=== PATIENT | female | born 1975 | race Caucasian/White ===

== ENCOUNTER 2019-07-15 05:54 | Day surgery (SDC) | payer OTHER, SELFPAY ==
[2019-07-15 06:36] VITALS: BP 94/53; PULSE 79; RESP 16; TEMP 36.8; O2SAT 99; BMI 24.1
[2019-07-15 06:52] LABS: Hematocrit 38.2 % (37-47); Mean Corpuscular Hgb 32.1 pg (27.0-32.0); Mean Corpuscular Volume 94.3 fL (81-99); Mean Platelet Vol. 9.9 fl (6.2-12.0); Platelet Count 378 K/mm3 (150-450); RBC Distribution Width CV 13.5 % (11.6-14.6); RBC Distribution Width SD 46.6 fl (35.1-43.9); Red Blood Count 4.05 M/mm3 (4.2-5.4); White Blood Count 8.1 K/mm3 (4.4-11.0)
[2019-07-15] MEDS: Lactated Ringers 1,000 ML 100 ML IV (07:01)
[2019-07-15 07:06] LABS: International Normalized Ratio 1.1; Partial Thromboplast Time 35.4 Seconds (24.1-36.2); Prothrombin Time (Protime)PT. 14.1 SECONDS (11.7-14.9)
--- NOTE | 2019-07-15 07:30 | POC_PTH ---
PATIENT: NITHIN BORDEN LOC: [facility] [place][id number] AGE/SX: 43/F ROOM: RE07/15/[address]: Dr. Jose Luis Zheng MD : 1975 BED: DIS: 07/15/2019 SPEC #: [id number] RECD: 07/15/19 09:39 STATUS: BLAYNE JUVE #: [id number] KRISHNA: 07/15/19 07:[address]: Jose Luis Zheng DEPT: SURGICAL PATHOLOGY RECD BY: Vivian Ricks ENTERED: 07/15/19 10:32 SP TYPE: PROD CONC OTHR DR: Dr. Mani Rosa, Tissues: Product of conception, NOS Procedures: Surgery Specimen Level IV HEADER OPERATION: Dilation and curettage, suction PRE-OP DIAGNOSIS: Incomplete spontaneous TISSUE SUBMITTED: Products of conception MICROSCOPIC DIAGNOSIS Products of conception: Immature chorionic villi, decidua and gestational endometrium (products of conception). SJ:beata 07/18/19 MICROSCOPIC DESCRIPTION Slides are reviewed. GROSS DESCRIPTION Received in fixative is one container labeled with the patient's name and designated products of conception. The specimen consists of multiple fragments of pink hemorrhagic soft tissue that in aggregate measure 7 x 6 x 1 cm. tissue is not identified. Vp Foundation tissue is submitted in two cassettes. / SJ:beata 07/15/19 TC:5 CPT: 95931
--- NOTE | 2019-07-15 07:52 | HP.PCM_ITS ---
History and Physical Date of Admission: 07/15/19 Date: 07/13/2019 Name: ASHLEIGH ARRIAGA Age: 43 Date of : 1975 HISTORY OF PRESENT ILLNESS: On 07/13/2019, Ashleigh Arriaga, a 43 year old female 1 1 4 0 1, presented for: -- Inevitable Miscarriage -- Denies any vaginal bleeding or cramping after u/s last week suggested possible demise. U/S today shows 6w2d IUP without FHTs. ALLERGIES: NKA, methergine, Leg pain, Methergine and Joint pain MEDICATIONS HISTORY: Current medications prescribed by our practice are: 1. Prometrium 200 mg capsule, 1 PO q HS REVIEW OF SYSTEMS: GENERAL - Denies fever, or chills SKIN - Denies skin changes EYES - Denies visual changes EARS - Denies difficulty hearing NOSE - Denies nasal congestion or bleeding MOUTH - Denies sore throat or difficulty swallowing NECK - Denies pain or swelling RESPIRATORY - Denies shortness of breath or wheezing CARDIOVASCULAR - Denies palpitations or chest pain GASTROINTESTINAL - Denies nausea, vomiting, diarrhea, constipation GENITOURINARY - Denies dysuria, frequency of urination, incontinence of urine MUSCULOSKELETAL - Denies joint or muscle pain NEUROLOGICAL - Denies localized numbness or weakness PSYCHIATRIC - Denies depression or anxiety ENDOCRINE - Denies heat or cold intolerance, weight loss or gain HEMATO-IMMUNOLOGIC - Denies excesive bleeding with cuts PAST HISTORY: Breast/Ovarian/Colon Cancers - Denies Infections - chicken pox Illnesses - no serious past illnesses Accidents - no injuries of consequence History of Abnormal PAPS - first noted more than 10 years ago-- YES Hospitalizations - Childbirth and see surgery SURGICAL HISTORY: 1. 02/10/2014 [facility] Trent M.D. 2. 07/22/1995 D and C 3. 06/11/1997 D and C 4. 12/07/2013 amalia Trent M.D. 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 Incomplete Spontaneous Without Complication PLAN BY DIAGNOSIS: 1. Spontaneous , Incomplete, Without Mention Of Complication Inevitable miscarriage at approximately 9 weeks gestation with 6w2d gestation without FHTs. Discussed options and MC at length. Desires to proceed with Suction D and E. Discussed RBAs and all questions answered.
--- NOTE | 2019-07-15 08:24 | PCM.OPRPT ---
Report of Operation Date of Procedure: 07/15/19 Pre-Operative Diagnosis: Inevitable Miscarriage Post-Operative Diagnosis: Inevitable Miscarriage Surgery/Procedure Performed:: Suction Dilation and Evacuation Description of Surgical Findings:: 10 cm endometrial cavity with products of conception Anesthesiologist: Talon Kang Specimen's removed: Products of conception Estimated Blood Loss (mL): Minimal Fluids Replaced: Crystalloid Description of Procedure: Surgeon: Jose Luis Zheng MD, FACOG Indication: 43 year old patient with incomplete AB at 9 weeks gestation with a 6 week IUP without FHTs. Pt has been counseled regarding the risks, benefits, and alternatives of this procedure and all questions were answered. Procedure: Patient was taken to the operating room where she was given IV sedation. The patient was prepped and draped in the usual sterile fashion. The anterior cervix was grasped with a tenaculum and cervix was dilated. A 10 mm suction curette was inserted into the cervix and all contents removed. Uterus was gently curetted and remaining tissue was removed by reinserting the suction curette. The patient tolerated the procedure well and was taken to the recovery room in satisfactory condition. Sponge, instruments and needle counts were all correct. There were no apparent complications of the surgery. Grafts/Implants Used: None - Complications None - Admit VTE Documentation VTE Present on Admission: Yes VTE Mechan Device Prophylaxis: SCD's VTE Pharm Prophylaxis ordered?: No
--- NOTE | 2019-07-15 08:29 | DCINST_ITS ---
Discharge Diet: No Restrictions Discharge Activity: Return to Normal Activity, May Shower, May Take a Tub Bath - in 2 weeks. May resume sexual activity in: 3 weeks Call your doctor if you observe: Fever of 101 or Higher, Inability to urinate, Inability to have a bowel movement, Using more than one pad per hour Additional Instructions: Use Ibuprophen and/or Tylenol at home for crampiness. Allergies/Adverse Reactions: Allergies methylergonovine maleate [From Methergine] Allergy (Verified 07/14/19 10:15) Other Medications to take at Discharge Cephalexin [Keflex] 500 mg PO BID 07/14/19 Primary Care Physician: Mani Rosa DO [Primary Care Provider] - Test Results: Test results from this visit will be discussed in further detail at your follow- up appointment, if applicable. Please Follow Up With: Jose Luis Zheng MD When: 2-3 weeks
[2019-07-15 08:30] VITALS: BP 114/69; BP 94/53; PULSE 92; RESP 16; TEMP 36.7; O2SAT 95
[2019-07-15 08:35] VITALS: BP 109/70; BP 94/53; PULSE 86; RESP 16; O2SAT 97
[2019-07-15 08:40] VITALS: BP 94/53; BP 99/66; PULSE 81; RESP 16; O2SAT 98
[2019-07-15 08:45] VITALS: BP 108/68; BP 94/53; PULSE 77; RESP 16; TEMP 36.7; O2SAT 98
[2019-07-15] MEDS: HYDROcodone Bitartrate/Apap 5/325 Tablet PO (09:17)
[2019-07-15 09:40] VITALS: BP 94/53
== END 2019-07-15 09:52 | disposition home or self-care (01) ==
LOC: SDC 05:57 → AC 05:58
PROVIDERS: Family Provider Student in an Organized Health Care Education/Training Program; PCP Student in an Organized Health Care Education/Training Program; Referring Provider Obstetrics & Gynecology; Visit Provider Obstetrics & Gynecology
PROC: (CPT 59812; principal; 2019-07-15 07:15)
DX: O03.4 Incomplete spontaneous abortion without complication (principal); Z3A.09 9 weeks gestation of pregnancy; Z82.49 Family history of ischemic heart disease and other diseases of the circulatory system; F17.210 Nicotine dependence, cigarettes, uncomplicated
CPT/HCPCS: 01965; 59812; 85027; 85610; 85730; 86850; 86900; 86901; 88305; J7120; J2405

== ENCOUNTER 2019-10-07 12:46 | Emergency (ER) | payer OTHER, SELFPAY ==
[2019-10-07 12:47] VITALS: BP 130/80; PULSE 115; RESP 16; TEMP 36.5; O2SAT 100; BMI 24.3
--- NOTE | 2019-10-07 13:00 | VDLE_ITS ---
Reason For Study: pain RIGHT GSV is normal. CFV is compressible, spontaneous, phasic, competent and demonstrates normal augmentation. FV is compressible, spontaneous, phasic, competent and demonstrates normal augmentation. POP V is compressible, spontaneous, phasic, competent and demonstrates normal augmentation. T/P Trunk is compressible. PTV is compressible. RT PerV is compressible. Procedure Exam performed portable in ED. The exam was abbreviated due to the COVID 19 protocol. The exam was diagnostic. A preliminary report was called and/or faxed to Dr. Cedeno. Interpretation Summary Deep veins of the right lower extremity are patent and compressible segmentally. There is no evidence of right lower extremity deep vein thrombosis. Valvular competence appears intact within the proximal deep venous system on the right . The right great saphenous vein appears patent and compressible segmentally. Ordering Physician: Alanna Cedeno Performed By: Lauro Robertson RVT
--- NOTE | 2019-10-07 13:01 | ED.VIS.GEN ---
History of Present Illness Chief Complaint: Lower Extremity Injury Informant: Patient Onset: Days Context: Gradual Onset Timing: Continuous Narrative: Patient is a 44-year-old female with no significant past medical history presenting with pain of her right lower extremity. Patient states for the past 2 to 3 days she has had a warmth sensation in her calf. She describes as always if she were to pee on herself. Last night she developed a painful knot over her medial calf. She states she was up all night because she was worried it be a blood clot. She states is painful but she did not take anything for pain. She called her primary care doctor, Dr. Rosa and the office instructed her to come to the emergency room to make sure it was not a blood clot. Patient denies any history of DVTs or PEs. She denies any chest pain, shortness of breath or difficulty breathing. She denies any hemoptysis. She is not on any estrogen supplements. She has not had any travel or immobilization recently. She states she does feel very anxious about the situation. She denies any other complaints at this time. Past Medical History - Allergies and Home Meds Allergies/Adverse Reactions: Allergies methylergonovine maleate [From Methergine] Allergy (Verified 10/07/19 12:48) Other Primary Care Physician: Mani Rosa DO [Primary Care Provider] - Past Medical History: None Surgical History: noncontributory Smoking Status: Current every day smoker Review of Systems General: Denies: Chills, Fever, Sweats Eyes: Denies: Visual changes - bilaterally, Diplopia ENT: Denies: Rhinorrhea, Sore throat Cardiovascular: Denies: Chest pain, Palpitations Respiratory: Denies: Dyspnea, Cough, Dyspnea on exertion Gastrointestinal: Denies: Abdominal pain, Nausea, Vomiting, Diarrhea, Melena, Hematochezia Genitourinary: Denies: Dysuria, Hematuria, Frequency Musculoskeletal: Reports: Extremity Pain - Right calf. Denies: Back pain, Swelling Skin: Denies: Rash, Wounds Neurological: Denies: Headache, Weakness, Numbness Physical Exam Vital Signs/Narrative: Vital Signs Temp Pulse Resp BP Pulse Ox 10/07/19 12:47 97.7 F L 115 H 16 130/80 H 100 Inital Vital Signs reviewed: Yes General: Well nourished, Well developed, No Acute Distress Head: Normocephalic, Atraumatic Eyes: Perrl, EOMI ENT: Moist mucous membranes, No rhinorrhea Neck: Supple, Nontender Cardiovascular: Regular rhythm, No murmurs, Tachycardia, - - 2+ bilateral DP pulses Respiratory: No distress, CTA bilaterally, Chest nontender Abdomen: Soft, Nontender, Nondistended, Normal bowel sounds Back: Nontender, Normal Inspection Extremities: No edema, Calf Tenderness - Right medial calf, tender cord palpated. No associated edema, warmth or erythema Skin: Normal color, No rash Neurological: Alert, Oriented x3, Cranial nerves II-XII grossly intact, Normal Strength, Normal Sensation Psychological: Normal affect, Normal Mood Diagnostic/Tx/Re-eval Venous duplex?negative for DVT - Medical Decision Making Patient is evaluated for pain of her right calf. Patient is not have any risk factors for DVT. She is very concerned that she might have 1 however. She is not have any findings consistent with infectious phlebitis, cellulitis or other acute emergencies on physical exam. She is neurovascularly intact. She has equal distal pulses. Her vital signs are normal except for tachycardia. I attribute this to patient's anxiety. Patient does not have any respiratory symptoms. Duplex ultrasound does not show any DVT. Patient is counseled that this might be some inflammation of her veins. She is counseled on ice and NSAID therapy. Patient is counseled on signs and symptoms require return the emergency room. She verbalizes agreement and understanding of this plan. Patient is discharged in stable condition. Of note patient does leave before she can receive her discharge for work but was exited by me. ED Disposition - Plan for ED Patient: Disposition: Home or Assisted Living Diagnosis: Right calf pain Referrals: Mani Rosa DO [Primary Care Provider] -
--- NOTE | 2019-10-07 15:32 | ED.RN ---
PT LEFT WITHOUT DISCHARGE INSTRUCTIONS. DR. VELÁSQUEZ INFORMED OF SAME.
== END 2019-10-07 15:30 | disposition home or self-care (01) ==
LOC: ED 13:18
PROVIDERS: Emergency Provider Emergency Medicine; PCP Student in an Organized Health Care Education/Training Program
DX: M79.661 Pain in right lower leg (principal); F17.200 Nicotine dependence, unspecified, uncomplicated
CPT/HCPCS: 93971; 99281

== ENCOUNTER → 2019-10-24 09:46 | Outpatient (CLI) | payer OTHER, SELFPAY ==
[2019-10-07 12:47] VITALS: BMI 24.3
[2019-10-24 11:03] LABS: hCG Titer Quant., Serum < 1 mIU/mL (1-3)
[2019-10-24 11:07] LABS: Progesterone Level 3.36 ng/mL (See Comment)
[2019-10-24 11:17] LABS: Follicle Stimulating Hormone 9.7 mIU/mL; Thyroid Stim Hormone (TSH) 1.26 uIU/mL (0.358-3.74)
== END ==
PROVIDERS: PCP Student in an Organized Health Care Education/Training Program; Referring Provider Obstetrics & Gynecology; Visit Provider Obstetrics & Gynecology
DX: N91.2 Amenorrhea, unspecified (principal)
CPT/HCPCS: 36415; 83001; 84144; 84443; 84702

== ENCOUNTER 2022-09-16 15:05 | Emergency (ER) | payer OTHER, SELFPAY ==
[2022-09-16 15:06] VITALS: BP 150/67; PULSE 104; RESP 18; TEMP 36.1; O2SAT 98; BMI 21.4
[2022-09-16 15:17] VITALS: O2SAT 98
[2022-09-16 15:19] VITALS: BP 105/66; PULSE 88; RESP 18; TEMP 36.4; O2SAT 98
--- NOTE | 2022-09-16 15:36 | EX.ED.VIS.UR ---
HPI HPI - URI History of Present Illness Chief Complaint: Cough Detail of Chief Complaint: Cough and left chest pain Informant: patient and spouse/S.O. Narrative Narrative: Patient presents with a cough that started a week and a half ago. Patient states that initially 2 weeks ago she had a fever for about 4 days. Patient had a sore throat and thought she had pinkeye. She tested multiple times for COVID and was negative. Cough at times productive and was chunky at times now phlegm mostly clear. Since yesterday she started having left chest wall pain that is worse with movement and deep breath and cough. Denies significant shortness of breath. She denies recent travel or surgery. No history of PE or DVT. No medical history otherwise. She denies sick contacts. ROS ROS ED Review of Systems ROS Unobtainable: other Constitutional Constitutional ED: Reports lethargy; Denies chills, fever(s), sweats or weight loss Eyes Eyes: Denies blurry vision, change in vision or diplopia ENT ENT ED: Denies rhinorrhea or sore throat Cardiovascular Cardiovascular: Reports chest pain; Denies orthopnea or racing heartbeat Respiratory/Chest Respiratory/Chest: Reports cough and sputum; Denies dyspnea, dyspnea on exertion or orthopnea Gastrointestinal Gastrointestinal: Denies abdominal pain, diarrhea, nausea or vomiting Genitourinary Genitourinary ED: Denies dysuria, hematuria or urinary frequency Musculoskeletal Musculoskeletal: Denies arthralgias, back pain, myalgias or neck pain Integumentary Denies abscess, Abrasions or rash Neurologic Neurologic: Denies headache(s) or weakness Psychiatric Psychiatric: Denies anxiety, depression or suicidal thoughts Endocrine Endocrinology: Denies polydipsia, polyphagia or polyuria Hematologic/Lymphatic Hematologic/Lymphatic: Denies easy bleeding, easy bruising or lymphadenopathy Allergic/Immunologic Allergic/Immunologic ED: Denies mouth swelling, tongue swelling or urticaria PFSH PFSH Medical History no medical history Home Medications doxycycline monohydrate 100 mg capsule 100 mg PO BID #20 CAPSULES 09/16/22 [Rx Last Taken Unknown] hydrocodone-acetaminophen 5-325mg 5mg-325mg 1 tab PO Q4H PRN PRN Pain 2 days #10 TABLETS 09/16/22 [Rx Last Taken Unknown] Allergy/AdvReac Type Severity Reaction Status Date / Time methylergonovine maleate Allergy Other Verified 09/16/22 15:07 [From Methergine] Surgical History no surgical history Social History Smoking Status: Current every day smoker tobacco type: cigarettes EXAM Physical Exam Const Vital Signs: 09/16/22 15:06 09/16/22 15:17 09/16/22 15:19 Temperature 96.9 F L 97.5 F L Temperature Source Temporal Temporal Pulse Rate 104 H 88 Respiratory Rate 18 18 Respiratory Effort Normal Non-Labored Respiratory Depth Normal Respiratory Pattern Normal Blood Pressure 150/67 H 105/66 Blood Pressure Mean 94 79 Pulse Ox 98 98 Oxygen Delivery Method Room Air Room Air Room Air Positive well nourished and well developed General Appearance ED: well developed and NAD HEENT Reports TM's clear and moist mucous membranes normocephalic and atraumatic; Negative for trauma or tenderness Tympanic Membrane ED: Yes TM's clear Eyes PERRL and EOMs intact bilaterally General Eye ED: Negative for pale conjunctiva or scleral icterus Neck no lymphadenopathy, supple and no JVD General: Negative for tenderness Chest Wall inspection of chest normal Chest Narrative: Tenderness to the left chest wall inferior to her left breast and in the mid axillary line. No crepitus or subcu emphysema noted. No ecchymosis or bruising noted. Chest: Negative for tenderness Resp normal respiratory effort and clear to auscultation bilaterally Effort and Inspection: Negative for respiratory distress or pain with movement Auscultation: Negative for rhonchi, wheezes or diminished lung sounds Cardio regular rate, regular rhythm, S1 normal heart sound, S2 normal heart sound and no murmurs Peripheral Pulses: pulses 2+ throughout GI normal to inspection, nondistended, normoactive bowel sounds, soft to palpation, non-tender, non-distended and no masses Back/Spine no CVA tenderness and no thoracic nor lumbar tenderness Extremity normal to inspection General Extremety ED: Negative for edema General Extremity: Negative for edema Neuro oriented x3, CN's II-XII intact bilaterally, no sensory deficits noted and gait normal Sensorium / Orientation: awake, alert, oriented to person, oriented to place and oriented to time Motor Exam: strength 5/5 throughout and strength abnormal Psych mental status grossly normal Skin no rashes or lesions noted and no wounds MDM MDM MDM Narrative Medical decision making narrative: Patient with recent illness and cough and now chest pain for the last 24 hours that is pleuritic and worse with movement. We did obtain a left rib series and chest x-ray which were negative for infiltrate or rib fractures or pneumothorax. Given that she has had symptoms for over 2 weeks I will go ahead and start her on doxycycline. Patient will be treated with Kingsley for pain. She is advised to follow-up with her primary care physician in 3 to 5 days. Patient is PERC negative. Patient advised to return if worsening pain, hemoptysis, increasing shortness of breath, or condition worsening way. Radiography Diagnostic Testing: Clinical Impression(s) from Imaging Studies Ribs w/Chest X-Ray 09/16/22 15:45 IMPRESSION: RIBS: Normal x-ray examination of the ribs. CHEST: Hyperinflation. The lungs are clear. Electronically Signed: Gregorio Baptiste MD at 16:01 EDT , Discharge Plan Triage Chief Complaint: Cough ED Provider: Chrissy Rodriguez Dx/Rx/DC Orders Clinical Impression: URI (upper respiratory infection), Chest wall pain Instructions: ED Upper Resp Infec Abx Tx, ED Chest Wall Strain Prescriptions: New hydrocodone-acetaminophen [hydrocodone-acetaminophen] 5-325 mg tablet 1 tab PO Q4H PRN PRN (Reason: Pain) 2 Days Qty: 10 0RF doxycycline monohydrate 100 mg capsule 100 mg PO BID Qty: 20 0RF Primary Care Provider: Mani Rosa Referrals: Mani Rosa, [Primary Care Provider] - 5-7 Days Disposition Disposition: Home, Self Care
--- NOTE | 2022-09-16 15:45 | RAD_ITS ---
STUDY: X-RAY - UNILATERAL RIBS ( LEFT ) WITH CHEST REASON FOR EXAM: Female, 47 years old. Cough, rib pain TECHNIQUE - RIBS: 4 view(s) of the ribs. TECHNIQUE - CHEST: Single PA view of the chest. COMPARISON: None. FINDINGS - RIBS: Normal visualized ribs without a demonstrated fracture. FINDINGS - CHEST: Hyperinflation. The lungs are clear. There is no demonstrated pleural abnormality. Normal size heart. Normal mediastinum and babatunde. Normal visualized pulmonary arteries. Normal visualized aortic arch and descending thoracic aorta. Normal visualized thoracic spine. Normal visualized ribs, clavicles, and shoulders. There is no demonstrated abnormality of the visualized soft tissue structures of the upper abdomen. RAD/Ribs Uni Min 3V w/PA Chest IMPRESSION: RIBS: Normal x-ray examination of the ribs. CHEST: Hyperinflation. The lungs are clear. Electronically Signed: Gregorio Baptiste MD at 16:01 EDT ,
[2022-09-16 17:18] VITALS: BP 121/84; PULSE 89; RESP 16; O2SAT 97
== END 2022-09-16 17:18 | disposition home or self-care (01) ==
PROVIDERS: Emergency Provider Emergency Medicine; PCP Student in an Organized Health Care Education/Training Program; Visit Provider Emergency Medicine
DX: J06.9 Acute upper respiratory infection, unspecified (principal); R07.89 Other chest pain; F17.210 Nicotine dependence, cigarettes, uncomplicated
CPT/HCPCS: 71101; 99283

== ENCOUNTER 2023-10-19 20:14 | Emergency (ER) | payer OTHER, SELFPAY ==
[2023-10-19 20:15] VITALS: BP 116/65; PULSE 92; RESP 16; TEMP 36.3; O2SAT 99
--- NOTE | 2023-10-19 20:40 | EKG12_ITS ---
Test Reason : Blood Pressure : / mmHG Vent. Rate : 080 BPM Atrial Rate : 080 BPM P-R Int : 140 ms QRS Dur : 078 ms QT Int : 404 ms P-R-T Axes : 070 064 066 degrees QTc Int : 465 ms Normal sinus rhythm Normal ECG Confirmed by URBANO OSORIO, ANGEL ([id number]), greeting card editor KEN WALTON ([id number]) on 10/26/2023 1:24:50 PM Referred By: Confirmed By:VIANNEY CLEMENT MD
--- NOTE | 2023-10-19 20:41 | EX.ED.DYSGE1 ---
HPI History of Present Illness Chief Complaint: Chest Other Informant: patient Onset/Context/Timing Onset: Weeks Context: Gradual Onset Timing: Waxes and wanes Narrative Narrative: Patient presents secondary to left-sided chest pain. She reports having what she believes was the flu about 6 weeks ago. Following this she had developed pain on the left side of her chest that seems to be muscular in nature. She states it continues to worsen. She will still get bouts of coughing where she is a hard time catching her breath and it causes increased pain. No fever or chills. She has been taking Tylenol and ibuprofen to try to help with pain. [facility] Medical History (Updated 10/19/23 @ 23:[address] Chelsey Arora MD) High cholesterol Tobacco abuse Home Medications doxycycline monohydrate 100 mg capsule 100 mg PO BID #20 CAPSULES 09/16/22 [Rx Last Taken Unknown] hydrocodone-acetaminophen 5-325mg 5mg-325mg 1 tab PO Q4H PRN PRN Pain 2 days #10 TABLETS 09/16/22 [Rx Last Taken Unknown] doxycycline monohydrate 100 mg capsule 100 mg PO BID #20 CAPSULES 10/19/23 [Rx Last Taken Unknown] guaifenesin 100 mg/5 mL oral liquid 200 mg (10 mL) PO Q6H PRN cough #500 mL 10/19/23 [Rx Last Taken Unknown] hydrocodone-acetaminophen 5-325mg 5mg-325mg 1 tab PO Q6H PRN PRN Pain 3 days #10 TABLETS 10/19/23 [Rx Last Taken Unknown] Allergy/AdvReac Type Severity Reaction Status Date / Time benzonatate Allergy Intermediate NEEDS Verified 10/19/23 21:05 [From Tessalon Perles] FOLLOW-UP methylergonovine maleate Allergy Other Verified 10/19/23 20:15 [From Methergine] Social History Smoking Status: Current every day smoker tobacco type: cigarettes ROS ROS ED Constitutional Constitutional ED: Denies chills or fever(s) Eyes Eyes: Denies change in vision ENT ENT ED: Denies rhinorrhea Cardiovascular Cardiovascular: Reports chest pain Respiratory/Chest Respiratory/Chest: Reports cough and dyspnea Gastrointestinal Gastrointestinal: Denies abdominal pain or vomiting Musculoskeletal Musculoskeletal: Reports back pain Neurologic Neurologic: Denies headache(s) Psychiatric Psychiatric: Denies anxiety or depression Allergic/Immunologic Allergic/Immunologic ED: Denies mouth swelling or tongue swelling EXAM Physical Exam Const Vital Signs: 10/19/23 20:15 Temperature 97.4 F L Temperature Source Temporal Pulse Rate 92 Respiratory Rate 16 Blood Pressure 116/65 Blood Pressure Mean 82 Pulse Ox 99 Positive well nourished and well developed General Appearance ED: well developed HEENT Reports moist mucous membranes Eyes EOMs intact bilaterally Chest Wall inspection of chest normal Chest Narrative: Diffuse muscular tenderness palpation over both the left anterior and posterior chest wall. No crepitus. Resp normal respiratory effort and clear to auscultation bilaterally Cardio regular rate and regular rhythm GI non-tender Palpation: soft Extremity normal to inspection Neuro oriented x3 and no sensory deficits noted Motor Exam: strength 5/5 throughout Psych mental status grossly normal Skin no rashes or lesions noted MDM MDM MDM Narrative Medical decision making narrative: Patient given dose of [place] and Robitussin. Chest x-ray obtained to evaluate for acute lung pathology, cardiac size, or mediastinal abnormality. EKG obtained to evaluate for cardiac arrhythmia/ischemia. Radiography Chest X-Ray - ED: 2 View, Read by ED Physician, Chronic Changes and No Infiltrates Diagnostic Testing: Clinical Impression(s) from Imaging Studies Chest X-Ray 10/19/23 20:50 IMPRESSION: Hyperinflated lungs without focal airspace disease perhaps secondary to COPD. Electronically Signed: Fabiano Roberto DO at 21:13 EDT , EKG Initial EKG: Attestation: I personally reviewed and interpreted this EKG as follows: Interpretation: Sinus Rhythm (Sinus 80 with no acute ischemia.) Treatment and Re-Evaluation :: EKG is sinus rhythm at 80 bpm. No evidence of acute ischemia. Two-view chest x-ray per my interpretation reveals mild hyperinflation with chronic changes but no focal infiltrate. Radiology interpretation reviewed and agrees patient does have changes consistent with COPD. On repeat evaluation patient states that her cough is improved. Patient states she is never been diagnosed with COPD, but does have longstanding history of smoking. She does have hyperinflation noted on her x-ray. She will be covered with a course of doxycycline as I do feel she likely has underlying COPD. She is not having significant wheezing so I will not treat her with steroids at this time. She also be given a prescription for [place] along with Robitussin. She can take ibuprofen in addition to this. I did recommend she follow-up with her primary care physician, Dr. Rosa, for further testing and evaluation. Return instructions given. Discharge Plan Triage Chief Complaint: Chest Other ED Provider: Chelsey Arora Dx/Rx/DC Orders Clinical Impression: Chest wall pain, COPD (chronic obstructive pulmonary disease) Instructions: Diagnosing COPD, ED Chest Pain, Noncardiac Prescriptions: New doxycycline monohydrate 100 mg capsule 100 mg PO BID Qty: 20 0RF hydrocodone-acetaminophen 5-325 mg tablet 1 tab PO Q6H PRN PRN (Reason: Pain) 3 Days Qty: 10 0RF guaifenesin 100 mg/5 mL liquid 200 mg PO Q6H PRN (Reason: cough) Qty: 500 0RF No Action hydrocodone-acetaminophen [hydrocodone-acetaminophen] 5-325 mg tablet 1 tab PO Q4H PRN PRN (Reason: Pain) 2 Days Qty: 10 0RF doxycycline monohydrate 100 mg capsule 100 mg PO BID Qty: 20 0RF Primary Care Provider: Mani Rosa Referrals: Mani Rosa DO [Primary Care Provider] - 1-2 Weeks Disposition Disposition: Home, Self Care Discharge Date/Time: 10/19/23 23:09
--- NOTE | 2023-10-19 20:50 | RAD_ITS ---
EXAM: XR CHEST, 2 VIEWS CLINICAL INDICATION: pain TECHNIQUE: Frontal and lateral views of the chest. COMPARISON: 09/16/2022 FINDINGS: LUNGS AND PLEURAL SPACES: Hyperinflated lungs without focal airspace disease perhaps secondary to COPD. No pneumothorax. No effusion. HEART: No significant abnormality. Cardiac silhouette not enlarged. MEDIASTINUM: Central airways and mediastinal contour are unremarkable. BONES/JOINTS: Degenerative changes in the spine. No acute fracture. SOFT TISSUES: No significant abnormality. RAD/Chest PA and Lateral IMPRESSION: Hyperinflated lungs without focal airspace disease perhaps secondary to COPD. Electronically Signed: Fabiano Roberto DO at 21:13 EDT ,
[2023-10-19] MEDS: HYDROcodone Bitartrate/Apap 5/325 Tablet PO (21:02)
[2023-10-19] MEDS: guaiFENesin 10 ML UDC (200MG/10ML) PO (21:16)
[2023-10-19] MEDS: Doxycycline 100 MG CAPSULE PO (23:05)
== END 2023-10-19 23:09 | disposition home or self-care (01) ==
PROVIDERS: Emergency Provider Emergency Medicine; PCP Student in an Organized Health Care Education/Training Program; Visit Provider Emergency Medicine
DX: R07.89 Other chest pain (principal); J44.9 Chronic obstructive pulmonary disease, unspecified; F17.210 Nicotine dependence, cigarettes, uncomplicated
CPT/HCPCS: 71046; 93005; 99283